=== PATIENT | male | born 2000 | race African-American/Black ===

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

== ENCOUNTER 2021-03-09 23:21 | Emergency (ER) | payer OTHER ==
[2021-03-09] MEDS ORDERED: Acetaminophen 500 MG TAB ONE (23:29)
[2021-03-10] MEDS ORDERED: Ibuprofen 800 MG TAB ONE (01:11)
[2021-03-10 13:03] LABS: SARS-CoV-2 PCR by NAA DETECTED (NotDetected)
== END 2021-03-10 01:23 | disposition home or self-care (01) ==
LOC: ERS 23:21
DX: U07.1 COVID-19 (principal); F17.290 Nicotine dependence, other tobacco product, uncomplicated
CPT/HCPCS: 99284; U0003; U0005

== ENCOUNTER 2021-03-16 13:27 | Emergency (ER) | payer OTHER ==
[2021-03-16] MEDS ORDERED: Ondansetron ODT 4 MG TAB ONE (14:15)
== END 2021-03-16 14:59 | disposition home or self-care (01) ==
LOC: ERS 13:27
DX: U07.1 COVID-19 (principal); F17.290 Nicotine dependence, other tobacco product, uncomplicated
CPT/HCPCS: 99283; Q0162